=== PATIENT | female | born 1950 | race Two or more races ===

== ENCOUNTER 2023-09-14 11:30 | Emergency (ER) | payer OTHER ==
[~2023-09-14] VITALS: Ht 160 cm; Wt 61.7 kg
[2023-09-14] MEDS ORDERED: SYNTHROID50 MCG PO (11:45)
[2023-09-14] MEDS ORDERED: CRESTOR40 MG PO (11:45)
[2023-09-14] MEDS ORDERED: KETOROLAC TROMETHAMINE 60 MG VIAL IM STA (12:21)
== END 2023-09-14 15:07 | disposition home or self-care (01) ==
LOC: ER 11:30
DX: S93.492A Sprain of other ligament of left ankle, initial encounter (principal); S40.012A Contusion of left shoulder, initial encounter; W19.XXXA Unspecified fall, initial encounter; Y93.89 Activity, other specified; Y92.098 Other place in other non-institutional residence as the place of occurrence of the external cause; Y99.8 Other external cause status; E03.8 Other specified hypothyroidism
CPT/HCPCS: 73030; 73600; 96372; 99283; J1885